=== PATIENT | male | born 1995 | race Asian ===

== ENCOUNTER 2017-04-14 15:34 | Emergency (ER) | payer OTHER ==
[~2017-04-14] VITALS: Ht 172.7 cm; Wt 92.0 kg
[2017-04-14 15:38] VITALS: BP 116/68; PULSE 66; RESP 20; TEMP 98.8; O2SAT 95
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
[2017-04-14] MEDS ORDERED: TETANUS/DIPHTHERIA TOXOID ADULT 0.5 ML VIAL IM ONE (18:15)
[2017-04-14] MEDS ORDERED: IBUPROFEN 600 MG TAB PO ONE (18:15)
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
[2017-04-14 19:23] VITALS: BP 126/57; PULSE 96; RESP 18; O2SAT 99
[2017-04-14] MEDS ORDERED: ORPH100T99 PO (19:30)
[2017-04-14] MEDS ORDERED: IBUP-232 PO (19:30)
== END 2017-04-14 19:53 | disposition home or self-care (01) ==
LOC: NEPD 15:34
DX: S09.90XA Unspecified injury of head, initial encounter (principal); S60.811A Abrasion of right wrist, initial encounter; M79.605 Pain in left leg; M79.642 Pain in left hand; Z23 Encounter for immunization; V89.2XXA Person injured in unspecified motor-vehicle accident, traffic, initial encounter
CPT/HCPCS: 70450; 73120; 73590; 73620; 90471; 90714; 99285; E0113